=== PATIENT | female | born 1965 | race Caucasian/White ===

== ENCOUNTER 2018-07-23 08:34 | Day surgery (SDC) | payer BC ==
[~2018-07-23] VITALS: Ht 160 cm; Wt 98.0 kg
[~2018-07-23 08:34] MED LIST: ALPR1TAB2 PO; CLINDAMYCIN 900MG PREMIX 50 ML IV PRN; CRESTOR40 MG PO; EZET10TA18 PO; LEVO5TAB29 PO; LEXAPRO20 MG PO; LOSA100T7 PO; METO-269 PO; OMEP20CA9 PO; RIVA20TA2 PO
[2018-07-23] MEDS ORDERED: BUPIVACAINE MPF 0.5% 30 ML VIAL. ONE (08:58)
[2018-07-23] MEDS ORDERED: IV RINGERS,LACTATED 1000ML 1,000 ML IV SCH (09:17)
[2018-07-23] MEDS ORDERED: LIDOCAINE 1% PF 2 ML VIAL. ID PRN (09:30)
[2018-07-23] MEDS ORDERED: MIDAZOLAM HCL/PF 2 MG/2 ML VIAL. IV PRN (09:30)
[2018-07-23] MEDS ORDERED: fentaNYL PF VIAL 100 MCG/2 ML VIAL IV PRN ×2 (09:30)
[2018-07-23] MEDS ORDERED: LIDOCAINE 1% Multi-Dose 20 ML VIAL. ONE (09:59)
[2018-07-23] MEDS ORDERED: ONDANSETRON PF 4 MG/2 ML VIAL. ONE (10:00)
[2018-07-23] MEDS ORDERED: PROPOFOL 20 ML IV ONE ×2 (10:00→10:30)
[2018-07-23] MEDS ORDERED: DEXAMETHASONE SOD PHOS 20 MG/5 ML VIAL. ONE (10:00)
[2018-07-23] MEDS ORDERED: fentaNYL PF VIAL 100 MCG/2 ML VIAL ONE (10:00)
[2018-07-23] MEDS ORDERED: FAMOTIDINE 20 MG/2 ML VIAL ONE (10:00)
[2018-07-23] MEDS ORDERED: MIDAZOLAM HCL/PF 2 MG/2 ML VIAL. ONE (10:00)
--- NOTE | 2018-07-23 10:18 | DISCH ---
DISCHARGE INSTRUCTIONS Condition on Discharge Condition on Discharge: Stable Activity After Discharge Activity Instructions for Disc: Other ROM activity Other activity instructions: wiggle fingers wrist and elbow Lifting Instructions after Dis: No heavy lifting Weight Bearing Status after Di: As tolerated Diet after Discharge Diet after Discharge: Regular Wound Incision Care Wound/Incision Care: Ice to area for comfort, Keep wound/cast CDI, Keep wound elevated Other wound/incision instructi: okay to change dressing in [address] after DC Call your doctor for: Concerns you may have Follow-Up Follow up with: Lara in 2 weeks ANGEL BILLS II, MD Jul 23, 2018 10:18
[2018-07-23] MEDS ORDERED: LIDOCAINE 1% Multi-Dose 20 ML VIAL. INJ ONE (10:46)
--- NOTE | 2018-07-23 11:01 | PDOC4 ---
Operative Note Operative Note Date of procedure: 07/23/2018 Surgeon: Rudolph Amador.: Rajan Bruno APRN Preoperative diagnosis: Left cubital tunnel syndrome Postoperative diagnosis: Same Procedure performed: Open left cubital tunnel release Anesthesia: Gen. Findings: no ulnar nerve subluxation with elbow ROM Complications: none Tourniquet time: 10Min Blood loss: 20mL Reason for procedure: Patient is very pleasant 53-year-old female with numbness tingling and pain attributable to her cubital tunnel, she had an EMG. This was consistent with my clinical examination. Because of failure conservative therapies, she was requesting surgery and we discussed cubital tunnel release, possible nerve transposition and she wished to proceed. Given her history of DVT , this certainly complicated the issue and we discussed the pros and cons of perioperative anticoagulation and in the and came up with a plan of starting Lovenox tonight and resuming Zarrella toe tomorrow. Realizing, that this puts at risk for bleeding complications including hematoma, persistent drainage, infection. Description of procedure: Patient was greeted in the preoperative area by myself for the correct extremity was verified and marked. She was taken to the operative suite and antibiotics started as she was brought back. Once in the operative room, 10 gently supine to the operating table and secured to the bed with all pressure points padded. She underwent successful induction of a general anesthetic. The hand table attachment was attached to the OR table. Left upper extremity had a nonsterile tourniquet taped in place. Left upper extremity was prepped and draped in our usual sterile fashion and conducted our standard preoperative timeout. Esmarch was used to exsanguinate the left upper extremity, the tourniquet was insufflated to 250 mmHg. I palpated for her medial epicondyle and patrick a line on her skin with a skin marker for my skin incision just posterior to the medial condyle and centered around it. After this , I incised skin with a scalpel and dissected subcutaneous tissue with tenotomies, using bipolar cautery to achieve hemostasis. Fascia was incised in line with skin incision. I identified her ulnar nerve and using the tenotomies released the cubital tunnel into the muscle belly forearm and proximally into the triceps muscle. I used the tip of the tenotomies palpate along the course of the nerve to ensure that accomplished a complete release, I was confident I had. I then took her elbow through range of motion and noted no subluxation of the nerve. After this, the tourniquet was let down I spent some time me with bipolar cautery cauterizing a couple areas of venous oozing. After I was confident I achieved hemostasis, closed skin with a multilayered technique using inverted interrupted 20 down deep followed by inverted interrupted 2-0 Vicryl again for subcutaneous tissue. Running 4-0 Monocryl subcuticular fashion was used for skin. Local anesthetic was injected into the flaca-incisional soft tissues. The arm was cleansed and dried and a soft bulky dressing with an Agustin wrap overlying it was applied. Surgery was tolerated well by the patient. Prior to wound closure, all counts correct 2. No competitions. At the conclusion of the surgery, she is awake from anesthesia transferred gently supine to the hospital bed and taken to the PACU in a stable and extubated condition. Postoperative plan is to be discharged home. Wound care instructions were provided her family member. She will follow up with me in 2 weeks, sooner should a problem arise. RUDOLPH BILLS II, MD Jul 23, 2018 11:01
[2018-07-23] MEDS ORDERED: HYDR-963 PO (11:50)
[2018-07-23] MEDS ORDERED: ENOX40DI SQ (11:54)
[2018-07-23] MEDS ORDERED: HYDROcodone/APAP 10/325 1 TAB TABLET PO ONE (12:15)
[2018-07-23] MEDS ORDERED: SEVOFLURANE 31 TO 60 MINUTES. IH ONE (12:22)
[2018-07-23 12:30] VITALS: BP 139/65
== END 2018-07-23 12:51 | disposition home or self-care (01) ==
LOC: SURG 08:34
PROVIDERS: ATTEND Orthopaedic Surgery Sports Medicine
DX: G56.22 Lesion of ulnar nerve, left upper limb (principal); Z79.899 Other long term (current) drug therapy; I10 Essential (primary) hypertension; E78.5 Hyperlipidemia, unspecified; F32.9 Major depressive disorder, single episode, unspecified; Z86.73 Personal history of transient ischemic attack (TIA), and cerebral infarction without residual deficits; Z90.49 Acquired absence of other specified parts of digestive tract; Z98.890 Other specified postprocedural states; Z98.84 Bariatric surgery status; F17.210 Nicotine dependence, cigarettes, uncomplicated; Z72.89 Other problems related to lifestyle; Z88.2 Allergy status to sulfonamides; Z88.5 Allergy status to narcotic agent; Z88.0 Allergy status to penicillin; Z88.1 Allergy status to other antibiotic agents; Z86.718 Personal history of other venous thrombosis and embolism
CPT/HCPCS: 64718; A7015; J1100; J2250; J2405; J2704; J3010; J3490; S0028

== ENCOUNTER → 2021-02-09 | Outpatient (CLI) | payer BC ==
[~2021-02-09] MED LIST changes: -CLINDAMYCIN 900MG PREMIX 50 ML IV PRN; +ENOX40DI SQ; -EZET10TA18 PO; +EZET10TA20 PO; +HYDR-3135 PO; +LOSA100T14 PO; -LOSA100T7 PO; +OMEP20CA16 PO; -OMEP20CA9 PO
== END ==
LOC: ONCLAB 10:53
PROVIDERS: ATTEND Internal Medicine
DX: D50.8 Other iron deficiency anemias (principal)
CPT/HCPCS: 36415; 82306; 82607; 82746

== ENCOUNTER → 2021-02-16 | Outpatient (CLI) | payer BC ==
[2021-02-16 12:07] LABS: BASO # 0.3 x10^3/uL (0.0-0.2); BASO % 3 % (0-3); EOS # 0.3 x10^3/uL (0.0-0.7); EOS % 3 % (0-3); HEMATOCRIT 30.3 % (36.0-47.0); HEMOGLOBIN 9.2 g/dL (12.0-15.5); LYMPH # 2.8 x10^3/uL (1.0-4.8); LYMPH % 31 % (24-48); MEAN CORPUSCULAR HEMOGLOBIN 22 pg (25-35); MEAN CORPUSCULAR HGB CONC 31 g/dL (31-37); MEAN CORPUSCULAR VOLUME 73 fL (79-100); MONO # 0.7 x10^3/uL (0.0-1.1); MONO % 8 % (0-9); NEUT # 4.9 x10^3/uL (1.8-7.7); NEUT % 55 % (31-73); PLATELET COUNT 470 x10^3/uL (140-400); RED BLOOD COUNT 4.15 x10^6/uL (3.50-5.40); RED CELL DISTRIBUTION WIDTH 21.1 % (11.5-14.5)
[2021-02-16 13:16] LABS: ANISOCYTOSIS MOD
[2021-02-16 13:19] LABS: PLT ESTIMATE INCREASED (ADEQUATE); TARGET CELLS OCC
[2021-02-16 13:20] LABS: BIZZARE CELLS FEW; MICROCYTOSIS PRESENT; POIKILOCYTOSIS PRESENT
[2021-02-16 13:21] LABS: OVALOCYTES OCC
== END ==
LOC: ONCLAB 11:03
PROVIDERS: ATTEND Physician Assistant
DX: D50.8 Other iron deficiency anemias (principal)
CPT/HCPCS: 83921; 85025

== ENCOUNTER → 2021-03-24 | Outpatient (CLI) | payer BC ==
[2021-03-24 13:54] LABS: BASO # 0.2 x10^3/uL (0.0-0.2); BASO % 3 % (0-3); EOS # 0.2 x10^3/uL (0.0-0.7); EOS % 3 % (0-3); HEMATOCRIT 39.4 % (36.0-47.0); HEMOGLOBIN 13.4 g/dL (12.0-15.5); LYMPH # 2.4 x10^3/uL (1.0-4.8); LYMPH % 36 % (24-48); MEAN CORPUSCULAR HEMOGLOBIN 30 pg (25-35); MEAN CORPUSCULAR HGB CONC 34 g/dL (31-37); MEAN CORPUSCULAR VOLUME 89 fL (79-100); MONO # 0.6 x10^3/uL (0.0-1.1); MONO % 9 % (0-9); NEUT # 3.2 x10^3/uL (1.8-7.7); NEUT % 48 % (31-73); PLATELET COUNT 293 x10^3/uL (140-400); RED BLOOD COUNT 4.45 x10^6/uL (3.50-5.40); RED CELL DISTRIBUTION WIDTH 33.9 % (11.5-14.5); WHITE BLOOD COUNT 6.6 x10^3/uL (4.0-11.0)
[2021-03-24 15:22] LABS: HOWELL-JOLLY BODIES PRESENT
[2021-03-24 15:33] LABS: ANISOCYTOSIS MOD; PLT ESTIMATE ADEQUATE (ADEQUATE)
== END ==
LOC: ONCLAB 13:25
PROVIDERS: ATTEND Internal Medicine Hematology & Oncology
DX: D50.8 Other iron deficiency anemias (principal)
CPT/HCPCS: 36415; 83540; 83550; 85025